=== PATIENT | female | born 1965 | race Caucasian/White ===

== ENCOUNTER 2016-09-02 09:27 | Day surgery (SDC) | payer OTHER ==
--- NOTE | ~2016-09-02 | EGD ---
EGD REPORT [facility] [address] [address] NAME: JESUSITA DE SANTIAGO : 67 STATUS : REG [facility]#: [id number] AGE: 50 ADM/REG DATE : 09/02/16 MR#: [id number] REPORT SERV DATE: 09/02/16 DICTATED BY: FIORELLA MARTI DATE: 09/02/16 REPORT STATUS : Draft [facility]ANS[facility]IBED BY: [facility] DATE: 09/02/16 Endoscopy Center Patient Name: Jesusita De Santiago Date of : 1965 Attending MD: FIORELLA MARTI MD Procedure Date No Time: 09/02/2016 Procedure: Colonoscopy Indications: Iron deficiency anemia, Last colonoscopy: date unknown Referring MD: IMELDA LEUNG Medicines: See the Anesthesia note for documentation of the administered medications Complications: No immediate complications. Procedure: Pre-Anesthesia Assessment: - ASA Grade Assessment: III - A patient with severe systemic disease. After I obtained informed consent, the scope was passed under direct vision. Throughout the procedure, the patient's blood pressure, pulse, and oxygen saturations were monitored continuously. The [id number] was introduced through the anus and advanced to the cecum, identified by appendiceal orifice and ileocecal valve. The colonoscopy was performed without difficulty. The patient tolerated the procedure well. The quality of the bowel preparation was adequate. Findings: The perianal and digital rectal examinations were normal. Internal hemorrhoids were found during retroflexion and were medium-sized. A sessile polyp was found in the recto-sigmoid colon. The polyp was 10 mm in size. The polyp was removed with a hot snare. Resection and retrieval were complete. Impression: - Internal hemorrhoids. - One 10 mm polyp at the recto-sigmoid colon. Resected and retrieved. Recommendation: - Patient has a contact number available for emergencies. The signs and symptoms of potential delayed complications were discussed with the patient. Return to normal activities tomorrow. Written discharge instructions were provided to the patient. - Regular diet. - Continue present medications. - Repeat colonoscopy for surveillance based on pathology EGD REPORT [address] [address] NAME: JESUSITA DE SANTIAGO : [birth year] [place] [facility] [place] [id number] AGE: 50 ADM/REG DATE : 09/02/16 MR#: [id number] REPORT SERV DATE: 09/02/16 DICTATED BY: FIORELLA MARTI DATE: 09/02/16 REPORT STATUS : Draft TRANSCRIBED BY: [employer] DATE: 09/02/16 results. - FOR YOUR BIOPSY RESULTS: Please go to [email or web address] and register to receive your results via the portal. Your biopsy results will be posted there in about 7 to 10 days. IF you do not see result in 10 days, call office. - Follow up with Dr Leung If you have not done stool hemoccults, call office to have done and if positive will need small bowel capsule endoscopy Procedure Code(s): --- Professional --- 30534, Colonoscopy, flexible, proximal to splenic flexure; with removal of tumor(s), polyp(s), or other lesion(s) by snare technique Diagnosis Code(s): --- Professional --- K64.8, Other hemorrhoids D12.7, Benign neoplasm of rectosigmoid junction D50.9, Iron deficiency anemia, unspecified CPT copyright 2013 [employer]. All rights reserved. The codes documented in this report are preliminary and upon physician coder review may be revised to meet current compliance requirements. Fiorella Marti MD FIORELLA MARTI MD 09/02/2016 11:14 AM This report has been signed electronically. Number of Addenda: 0 Note Initiated On: 09/02/2016 10:44 AM Scope Withdrawal Time 0 hours 7 minutes 45 seconds [address] [address]
--- NOTE | ~2016-09-02 | EGD ---
EGD REPORT [facility] [address] [address] NAME: JESUSITA DE SANTIAGO : [birth year] STATUS : REG [facility]#: [id number] AGE: 50 ADM/REG DATE : 09/02/16 MR#: [id number] REPORT SERV DATE: 09/02/16 DICTATED BY: FIORELLA MARTI DATE: 09/02/16 REPORT STATUS : Draft [facility]ANS[facility]IBED BY: [facility] DATE: 09/02/16 Endoscopy Center Patient Name: Jesusita De Santiago Date of : 1965 Attending MD: FIORELLA MARTI MD Procedure Date No Time: 09/02/2016 Procedure: Upper GI endoscopy Indications: Iron deficiency anemia Referring MD: IMELDA LEUNG Medicines: See the Anesthesia note for documentation of the administered medications Complications: No immediate complications. Procedure: Pre-Anesthesia Assessment: - ASA Grade Assessment: III - A patient with severe systemic disease. After obtaining informed consent, the endoscope was passed under direct vision. Throughout the procedure, the patient's blood pressure, pulse, and oxygen saturations were monitored continuously. The GIF [id number] was introduced through the mouth, and advanced to the second part of duodenum. The upper GI endoscopy was accomplished without difficulty. The patient tolerated the procedure well. Findings: The 2nd part of the duodenum was normal. Biopsies were taken with a cold forceps for histology. Mild inflammation was found in the gastric antrum. Biopsies were taken with a cold forceps for histology. Multiple small sessile polyps were found in the gastric fundus. Biopsies were taken with a cold forceps for histology. A small hiatus hernia was present. Impression: - Normal 2nd part of the duodenum. Biopsied. - Gastritis. Biopsied. - Multiple gastric polyps. Biopsied. - Hiatus hernia. Recommendation: - Patient has a contact number available for emergencies. The signs and symptoms of potential delayed complications were discussed with the patient. Return to normal activities tomorrow. Written discharge instructions were provided to the patient. - Regular diet. - Continue present medications. EGD REPORT [address] [address] NAME: JESUSITA DE SANTIAGO : [birth year] STATUS : [place] [facility] [place] PAT#: [id number] AGE: 50 ADM/REG DATE : 09/02/16 MR#: [id number] REPORT SERV DATE: 09/02/16 DICTATED BY: FIORELLA MARTI DATE: 09/02/16 REPORT STATUS : Draft TRANSCRIBED BY: [employer] DATE: 09/02/16 - FOR YOUR BIOPSY RESULTS: Please go to [email or web address] and register to receive your results via the portal. Your biopsy results will be posted there in about 7 to 10 days. IF you do not see result in 10 days, call office. Procedure Code(s): --- Professional --- 61285, Esophagogastroduodenoscopy, flexible, transoral; with biopsy, single or multiple Diagnosis Code(s): --- Professional --- K29.70, Gastritis, unspecified, without bleeding K31.7, Polyp of stomach and duodenum K44.9, Diaphragmatic hernia without obstruction or gangrene D50.9, Iron deficiency anemia, unspecified CPT copyright 2013 [employer]. All rights reserved. The codes documented in this report are preliminary and upon incident analyst review may be revised to meet current compliance requirements. Fiorella Marti MD FIORELLA MARTI MD 09/02/2016 11:00 AM This report has been signed electronically. Number of Addenda: 0 Note Initiated On: 09/02/2016 10:46 AM Scope Withdrawal Time 0 hours 0 minutes 0 seconds [address] [id number]
[~2016-09-02 09:27] MED LIST: AMIT75 PO; CAP25 PO; CYANO1000T PO; GLUCPH PO; LOP100 PO; LOP50 PO; LYRICA75 PO; NEUR100 PO; PAXIL40 MG PO; PROTONIX PO; ZOCOR40 PO
== END 2016-09-02 23:59 | disposition home or self-care (01) ==
LOC: DMU 09:27
PROVIDERS: Internal Medicine Gastroenterology
PROC: 0DB68ZX Excision of Stomach, Via Natural or Artificial Opening Endoscopic, Diagnostic (ICD-10-PCS; 2016-09-02)
PROC: 0DBN8ZZ Excision of Sigmoid Colon, Via Natural or Artificial Opening Endoscopic (ICD-10-PCS; principal; 2016-09-02 15:00)
PROC: 0DB98ZX Excision of Duodenum, Via Natural or Artificial Opening Endoscopic, Diagnostic (ICD-10-PCS; 2016-09-02 15:00)
DX: D12.7 Benign neoplasm of rectosigmoid junction (principal); K31.7 Polyp of stomach and duodenum; K29.60 Other gastritis without bleeding; K31.89 Other diseases of stomach and duodenum; K64.8 Other hemorrhoids; K44.9 Diaphragmatic hernia without obstruction or gangrene; E66.9 Obesity, unspecified; I10 Essential (primary) hypertension; E11.9 Type 2 diabetes mellitus without complications; G47.33 Obstructive sleep apnea (adult) (pediatric); M79.7 Fibromyalgia; F41.9 Anxiety disorder, unspecified; F17.210 Nicotine dependence, cigarettes, uncomplicated; Z88.2 Allergy status to sulfonamides; Z88.8 Allergy status to other drugs, medicaments and biological substances; Z79.84 Long term (current) use of oral hypoglycemic drugs; Z79.899 Other long term (current) drug therapy
CPT/HCPCS: 82962; 84703; 88305

== ENCOUNTER 2016-10-06 10:31 | Emergency (ER) | payer OTHER ==
[2016-10-06 10:59] LABS: ASCORBIC ACID (UR NOT ORDER) NEG (NEG); BILIRUBIN, URINE NEGATIVE (NEG); ER URINALYSIS TAT 0 Hrs 15 Mins; KETONE, URINE NEGATIVE (NEG); LEUKOCYTE ESTERASE(NOT OR NEG (NEG); NITRITE (URINE) NEG (NEG); WBC (NOT ORDERED) (RFLEX) 1 (0-5)
[2016-10-06 11:00] LABS: BASOPHILS 0.5 %; BASOPHILS ABSOLUTE 0.04 10/3/uL (0.0-0.16); EOSINOPHILS 2.8 %; EOSINOPHILS ABSOLUTE 0.24 10/3/uL (0.0-0.53); ER CBC TAT 0 Hrs 16 Mins; HEMATOCRIT 31.9 % (36.0-48.0); HEMOGLOBIN 9.3 g/dL (12.0-16.0); IMMATURE GRANULOCYTES 0.6 %; IMMATURE GRANULOCYTES ABSOLUTE 0.05 10/3/uL (0.0-0.11); LYMPHOCYTES 24.7 %; LYMPHOCYTES ABSOLUTE 2.14 10/3/uL (0.67-4.30); MANUAL DIFF NO %; MEAN CORPUS HGB CONC 29.2 g/dL (32.0-36.0); MEAN CORPUSCULAR HEMOGLOB 20.9 pg (26.0-34.0); MEAN CORPUSCULAR VOLUME 71.8 fL (80-100); MEAN PLATELET VOLUME 10.6 fL (9.2-13.0); MONOCYTES 4.9 %; MONOCYTES ABSOLUTE 0.42 10/3/uL (0.21-1.20); NEUTROPHILS 66.5 %; NEUTROPHILS ABSOLUTE 5.76 10/3/uL (2.02-8.40); PLATELET COUNT 202 10/3/uL (150-400); RBC DISTRIBUTION WIDTH 19.4 % (12.0-16.0); RED CELL COUNT 4.44 10/6/uL (4.0-5.6); WHITE BLOOD CELLS 8.7 10/3/uL (4.5-10.5)
[2016-10-06 11:06] LABS: ALBUMIN 3.5 G/DL (3.5-5.0); BUN (BLOOD UREA NITROGEN) 10 MG/DL (6-23); CALCIUM, SERUM 9.4 MG/DL (8.5-10.4); CHLORIDE, SERUM 102 MMOL/L (96-112); CREATININE 0.76 MG/DL (0.55-1.02); GFR AFRICAN AMERICAN 107 ML/MIN (>=60); GFR NON AFRICAN AMERICAN 92 ML/MIN (>=60); GLOBULIN 3.4 G/DL (2.5-4.1); LACTATE 1.8 MMOL/L (0.3-2.4); SGOT(AST) 35 U/L (5-40); SGPT(ALT) 42 U/L (5-65); SODIUM, SERUM 138 MMOL/L (135-148); TOTAL BILIRUBIN 0.3 MG/DL (0-1.2); TOTAL PROTEIN 6.9 G/DL (6.0-8.5); TROPONIN I <0.02 NG/ML (<0.05)
[2016-10-06 11:07] LABS: ALKALINE PHOSPHATASE 103 U/L (45-117); CO2 (CARBON DIOXIDE) 29 MMOL/L (24-34); GLUCOSE, SERUM 132 MG/DL (60-99)
[2016-10-06 11:27] LABS: ANISOCYTOSIS 1+ (5-10/OIF) (0-5/OIF); PLATELET ESTIMATE ADQ (ADEQUATE)
[2016-10-06 11:28] LABS: POLYCHROMASIA 1+ (2-5/OIF) (0-1/OIF)
== END 2016-10-06 14:02 | disposition home or self-care (01) ==
LOC: ER 10:31
PROVIDERS: Nurse Practitioner
DX: K85.90 Acute pancreatitis without necrosis or infection, unspecified (principal); D64.9 Anemia, unspecified; J45.909 Unspecified asthma, uncomplicated; I10 Essential (primary) hypertension; E11.9 Type 2 diabetes mellitus without complications; F17.200 Nicotine dependence, unspecified, uncomplicated; Z90.49 Acquired absence of other specified parts of digestive tract; Z88.2 Allergy status to sulfonamides; Z88.8 Allergy status to other drugs, medicaments and biological substances; Z79.84 Long term (current) use of oral hypoglycemic drugs; Z79.899 Other long term (current) drug therapy
CPT/HCPCS: 74176; 80053; 81001; 83605; 83690; 84484; 85025; 93005; 96374; 96375; 99284; J1170; J2405